=== PATIENT | female | born 1980 | race Caucasian/White ===

== ENCOUNTER 2023-07-11 12:20 | Outpatient (CLI) | payer OTHER | END 2023-07-11 12:21 | disposition home or self-care (01) | LOC: CSHLAB 12:20 | PROVIDERS: ATTEND Obstetrics & Gynecology | DX: Z01.818 Encounter for other preprocedural examination (principal); Z85.3 Personal history of malignant neoplasm of breast | CPT/HCPCS: 93005; 93010 ==

== ENCOUNTER 2023-07-13 07:20 | Day surgery (SDC) | payer OTHER ==
[2023-07-11 13:44] VITALS: BMI 25.0
[2023-07-11 14:55] LABS: Hematocrit 41.6 % (34.9-44.5); Hemoglobin 14.1 g/dL (12.0-15.5); Mean Corpuscular HGB CONC 33.9 g/dL (32.0-36.0); Mean Corpuscular Hemoglobin 29.4 pg (27.0-33.0); Mean Corpuscular Volume 86.7 fL (81.6-98.3); Mean Platelet Volume 9.8 fL (7.4-10.4); Platelet Count 308 10x3/uL (150-450); RBC Distribution Width 13.2 % (11.5-14.5); White Blood Cell (WBC) Count 7.8 10x3/uL (3.5-10.5)
[2023-07-11 15:26] LABS: Anion Gap 15 mmol/L (10-20); BUN (Urea Nitrogen) 8 mg/dL (7.0-18.7); Calc. Creatinine Clearance 0 mL/min (70-130); Calcium 9.9 mg/dL (7.8-10.44); Carbon Dioxide 23 mmol/L (22-29); Chloride 106 mmol/L (98-107); Estimated GFR 92; Glucose 89 mg/dL (70-105); Potassium 3.9 mmol/L (3.5-5.1); Sodium 140 mmol/L (136-145)
[2023-07-11 15:29] LABS: BHCG - Serum Negative (NEGATIVE); Pregs Control Background? CLEAR/WHITE (CLR/WHITE); Pregs Control Bar Appear? YES (CONTROL BAR)
[2023-07-13] MEDS ORDERED: EPINEPHrine 1 MG/ML VIAL ONE (07:37)
[2023-07-13] MEDS ORDERED: Bupivacaine PF 0.5% 30 ML VIAL ONE (07:37)
[2023-07-13] MEDS ORDERED: Gabapentin 300 MG CAP ONE (07:54)
[2023-07-13] MEDS ORDERED: Famotidine/PF 20 mg/2ml Vial ONE (07:54)
[2023-07-13] MEDS ORDERED: CeleCOXIB 100 MG CAP ONE (07:54)
[2023-07-13] MEDS ORDERED: Acetaminophen 500 MG TAB ONE (08:10)
[2023-07-13] MEDS ORDERED: Scopolamine 1 mg/72 hour Patch ONE (08:10)
[2023-07-13] MEDS ORDERED: PROPOFOL 20 ML ONE (09:35)
[2023-07-13] MEDS ORDERED: Midazolam HCl 2 mg/2 ml Vial ONE (09:35)
[2023-07-13] MEDS ORDERED: Rocuronium Bromide 10 MG/ML (10ML VIAL) ONE (09:35)
[2023-07-13] MEDS ORDERED: Lidocaine 1% PF 5 ML VIAL ONE (09:35)
[2023-07-13] MEDS ORDERED: Dexamethasone 20 MG/5 ML VIAL ONE (09:35)
[2023-07-13] MEDS ORDERED: Ondansetron PF 4 MG/2 ML Vial ONE ×2 (09:35→13:24)
[2023-07-13] MEDS ORDERED: Fentanyl 250 MCG/5 ML VIAL ONE (09:35)
[2023-07-13] MEDS ORDERED: CEFAZOLIN 2 GM VIAL ONE (09:37)
[2023-07-13] MEDS ORDERED: SUGAMMADEX SODIUM 200 MG/2 ML VIAL ONE (09:39)
[2023-07-13] MEDS ORDERED: PHENYLEPHRINE-NS 100 MCG/ML 10 ML SYRINGE ONE (10:01)
[2023-07-13] MEDS ORDERED: Glycopyrrolate 0.2 MG/ML 5 ML SYRINGE ONE (10:01)
== END 2023-07-13 14:10 | disposition home or self-care (01) ==
LOC: CSHSDC 07:20
PROVIDERS: ATTEND Obstetrics & Gynecology
PROC: 0UB24ZZ Excision of Bilateral Ovaries, Percutaneous Endoscopic Approach (ICD-10-PCS; principal; 2023-07-13)
PROC: 0UB74ZZ Excision of Bilateral Fallopian Tubes, Percutaneous Endoscopic Approach (ICD-10-PCS; principal; 2023-07-13)
PROC: 0UT94ZZ Resection of Uterus, Percutaneous Endoscopic Approach (ICD-10-PCS; principal; 2023-07-13)
DX: N80.03 Adenomyosis of the uterus (principal); F17.210 Nicotine dependence, cigarettes, uncomplicated; Z85.3 Personal history of malignant neoplasm of breast; Z88.5 Allergy status to narcotic agent; Z90.49 Acquired absence of other specified parts of digestive tract; Z90.89 Acquired absence of other organs
CPT/HCPCS: 80048; 84703; 85027; 86850; 86900; 86901; 88307; C1889; J0171; J0665; J1100; J2250; J2405; J2704; J3010; S0028

== ENCOUNTER 2024-09-25 12:33 | Outpatient (CLI) | payer MEDICAID | END 2024-09-25 12:34 | disposition home or self-care (01) | LOC: CSHMAMMO 12:33 | PROVIDERS: ATTEND Specialist | DX: Z08 Encounter for follow-up examination after completed treatment for malignant neoplasm (principal); Z85.3 Personal history of malignant neoplasm of breast | CPT/HCPCS: 77066; G0279 ==